=== PATIENT | female | born 1955 | race Caucasian/White ===

== ENCOUNTER 2020-09-10 13:45 | Outpatient (REF) | payer MEDICARE, MEDICAID, SELFPAY ==
--- NOTE | 2020-09-10 | US_ITS ---
EXAMINATION: US RETROPERITONEAL COMPLETE (RENAL) CLINICAL INFORMATION: Neurogenic bladder. History of kidney stones. COMPARISON: Ultrasound renal 02/26/2019 and 02/28/2018. TECHNIQUE: Real-time imaging of the kidneys and bladder. FINDINGS: RIGHT KIDNEY: 11.3 x 5.9 x 4.7 cm (SAG x AP x TRV). The kidney is normal in size, contour, and echogenicity. Renal cortical thickness is normal. No calculi or focal parenchymal lesions. No hydronephrosis. There are scattered echogenic foci seen throughout both kidneys without shadowing. LEFT KIDNEY: 7.4 x 4.3 x 4.2 cm (SAG x AP x TRV). The kidney is normal in size, contour, and echogenicity. Renal cortical thickness is normal. No focal solid mass or cystic lesion seen. There is an echogenic stone in the lower pole measuring 0.4 x 0.3 x 0.6 cm. There is no caliectasis. Mild pelvic fullness is seen. The bladder could not be evaluated due to diverting urostomy in place. US/US retroperitoneal comp IMPRESSION: Small echogenic nonobstructive stone lower pole left kidney. Mild pelvic fullness. Small echogenic foci likely tiny calcifications scattered throughout the right kidney.
== END 2020-09-10 13:46 | disposition home or self-care (01) ==
LOC: HO.US 13:45
PROVIDERS: Visit Provider Urology
DX: N31.9 Neuromuscular dysfunction of bladder, unspecified (principal); Z87.442 Personal history of urinary calculi
CPT/HCPCS: 76770

== ENCOUNTER → 2020-10-30 15:46 | Outpatient (BNVA) | payer MEDICARE, MEDICAID, SELFPAY | PROVIDERS: PCP Pediatrics; Visit Provider Urology | CPT/HCPCS: Q3014 ==